=== PATIENT | male | born 1940 | race Caucasian/White ===

== ENCOUNTER → 2017-06-19 | Outpatient (CLI) | payer MEDICARE, OTHER ==
[~2017-06-19] MED LIST: ALBU90AE PO; ASCO250T3 PO; ATOR40TA PO; FLUT16SP PO; IBUP200T64 PO; LORA10CA PO; MULT-658 PO; TEMA15CA PO; TRAZ150T62 PO
== END ==
LOC: STAR 10:36
PROVIDERS: ATTEND Orthopaedic Surgery
DX: M17.0 Bilateral primary osteoarthritis of knee (principal)
CPT/HCPCS: 93005

== ENCOUNTER 2018-12-03 10:59 | Outpatient (CLI) | payer MEDICARE | END 2018-12-03 23:59 | disposition home or self-care (01) | LOC: STAR 10:59 | PROVIDERS: ATTEND Orthopaedic Surgery | DX: Z01.818 Encounter for other preprocedural examination (principal); M19.019 Primary osteoarthritis, unspecified shoulder | CPT/HCPCS: 87081 ==